=== PATIENT | female | born 1985 | race Caucasian/White ===

== ENCOUNTER 2019-04-18 08:58 | Emergency (ER) | payer SELFPAY ==
[2019-04-18] MEDS ORDERED: KETOROLAC 30 MG/ML INJ ONE (09:26)
--- NOTE | 2019-04-18 10:31 | RAD REPORT ---
EXAM DESCRIPTION: RAD - Shoulder Left 2 View - 04/18/2019 9:33 am CLINICAL HISTORY: Left shoulder pain x6 weeks COMPARISON: None. TECHNIQUE: Internal and external rotation views of the left shoulder were obtained. FINDINGS: There is no fracture or dislocation. AC joint is normal in appearance. No acute or suspici ous findings. IMPRESSION: Negative two-view left shoulder examination.
--- NOTE | 2019-04-18 10:49 | ER ---
Nurse's Notes [facility] Name: Le Bean Age: 33 yrs Sex: Female : 1985 Arrival Date: 04/18/2019 Time: 09:00 Bed 18 Private MD: Diagnosis: Pain in left shoulder Presentation: 04/18 09:05 Presenting complaint: Left shoulder pain and weakness x 6 weeks. Transition of care: hb patient was not received from another setting of care. Onset of symptoms was January 2018. Risk Assessment: Do you want to hurt yourself or someone else? Patient reports no desire to harm self or others. Initial Sepsis Screen: Does the patient meet any 2 criteria? No. Patient's initial sepsis screen is negative. Does the patient have a suspected source of infection? No. Patient's initial sepsis screen is negative. Care prior to arrival: None. 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 - Social history:: Smoking status: Patient uses tobacco products, smokes one-half pack cigarettes per day. - Ebola Screening: : No symptoms or risks identified at this time. Screenin:15 Abuse screen: Denies threats or abuse. Denies injuries from another. Nutritional sg screening: No deficits noted. Tuberculosis screening: No symptoms or risk factors identified. Never had TB. Fall Risk None identified. Assessment: 09:15 General: Appears in no apparent distress. well groomed, well developed, well nourished, sg Behavior is calm, cooperative, appropriate for age. Pain: Pain: Complains of pain in anterior aspect of left shoulder Quality of pain is described as sharp, shooting, stabbing. 10:09 Neuro: Level of Consciousness is awake, alert, obeys commands, Oriented to person, sg place, time, Windmill Mechanic are equal bilaterally Moves all extremities. Gait is steady, Speech is normal, Facial symmetry appears normal, Pupils are PERRLA. Cardiovascular: Capillary refill is brisk in bilateral fingers Patient's skin is warm and dry. Chest pain is denied. Respiratory: Airway is patent Respiratory effort is even, unlabored, Respiratory pattern is regular, symmetrical. GI: Abdomen is round non-distended. : No signs and/or symptoms were reported regarding the genitourinary system. EENT: No signs and/or symptoms were reported regarding the EENT system. Derm: Skin is pink, warm \T\ dry. Musculoskeletal: Circulation, motion, and sensation intact. Range of motion: intact in all extremities. 10:14 Reassessment: Patient appears in no apparent distress at this time. Patient and/or sg family updated on plan of care and expected duration. Pain level reassessed. Patient is alert, oriented x 3, equal unlabored respirations, skin warm/dry/pink. Patient states symptoms have not improved. Vital Signs: 09:07 BP 118 / 74; Pulse 79; Resp 16; Temp 98.2; Pulse Ox 100% on R/A; Weight 81.65 kg; hb Height 5 ft. 6 in. (167.64 cm); Pain 08/25; 09:07 Body Mass Index 29.05 (81.65 kg, 167.64 cm) hb ED Course: 09:00 Patient arrived in ED. as 09:06 Triage completed. hb 09:08 Arm band placed on right wrist. hb 09:09 Prem Davila NP is PHCP. pm1 09:09 Jose Alejandro Bunn MD is Attending Physician. pm1 09:15 No provider procedures requiring assistance completed. sg 09:25 Leopoldo Meeks RN is Primary Nurse. sg 09:35 Shoulder Left (2 View) XRAY In Process Unspecified. EDMS 10:11 Awaiting radiology results. sg Administered Medications: 09:30 Drug: TORadol 60 mg Route: IM; Site: right ventrogluteal; sg Outcome: 10:46 Discharge ordered by . pm1 11:11 Patient left the ED. sg Signatures: Dispatcher [employer] EDMS Leopoldo Meeks, FARRAH RN sg Itzel Colmenares as Prem Davila NP INSTRUMENTATION TECHNOLOGIST pm1 Christie Alfonso RN RN hb Corrections: (The following items were deleted from the chart) 09:09 09:07 LMP 02/28/2019 hb hb 10:10 09:15 Pain: sg sg
--- NOTE | 2019-04-18 10:50 | EDPHYS ---
Physician Documentation [facility] Name: Le Bean Age: 33 yrs Sex: Female : 1985 Arrival Date: 04/18/2019 Time: 09:00 Bed 18 Private MD: MONALISA Physician Jose Alejandro Bunn HPI: 04/18 09:19 This 33 yrs old Female presents to ER via Ambulatory with complaints of Left pm1 shoulder pain. 09:19 The patient or guardian complains of pain. The complaints affect the anterior aspect of pm1 left shoulder. Context: The problem was sustained at home, resulted from unknown cause. Onset: The symptoms/episode began/occurred 2 month(s) ago. 09:19 Modifying factors: The symptoms are alleviated by remaining still, the symptoms are pm1 aggravated by movement, lifting weight. Associated signs and symptoms: Pertinent negatives: deformity, numbness, swelling, tingling. Severity of symptoms: in the emergency department the symptoms are unchanged. The patient has not experienced similar symptoms in the past. The patient has not recently seen a physician. 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 - Social history:: Smoking status: Patient uses tobacco products, smokes one-half pack cigarettes per day. - Ebola Screening: : No symptoms or risks identified at this time. ROS: 09:19 Constitutional: Negative for fever, chills, and weight loss, Eyes: Negative for injury, pm1 pain, redness, and discharge, ENT: Negative for injury, pain, and discharge, Neck: Negative for injury, pain, and swelling, Cardiovascular: Negative for chest pain, palpitations, and edema, Respiratory: Negative for shortness of breath, cough, wheezing, and pleuritic chest pain, Abdomen/GI: Negative for abdominal pain, nausea, vomiting, diarrhea, and constipation, Back: Negative for injury and pain. 09:19 Skin: Negative for injury, rash, and discoloration, Neuro: Negative for headache, weakness, numbness, tingling, and seizure. 09:19 MS/extremity: Positive for pain, of the anterior aspect of left shoulder, Negative for decreased range of motion, deformity, tingling. Exam: 09:19 Constitutional: This is a well developed, well nourished patient who is awake, alert, pm1 and in no acute distress. Head/Face: Normocephalic, atraumatic. Eyes: Pupils equal round and reactive to light, extra-ocular motions intact. Lids and lashes normal. Conjunctiva and sclera are non-icteric and not injected. Cornea within normal limits. Periorbital areas with no swelling, redness, or edema. ENT: Nares patent. No nasal discharge, no septal abnormalities noted. Tympanic membranes are normal and external auditory canals are clear. Oropharynx with no redness, swelling, or masses, exudates, or evidence of obstruction, uvula midline. Mucous membranes moist. Neck: Trachea midline, no thyromegaly or masses palpated, and no cervical lymphadenopathy. Supple, full range of motion without nuchal rigidity, or vertebral point tenderness. No Meningismus. Chest/axilla: Normal chest wall appearance and motion. Nontender with no deformity. No lesions are appreciated. Cardiovascular: Regular rate and rhythm with a normal S1 and S2. No gallops, murmurs, or rubs. Normal PMI, no JVD. No pulse deficits. Respiratory: Lungs have equal breath sounds bilaterally, clear to auscultation and percussion. No rales, rhonchi or wheezes noted. No increased work of breathing, no retractions or nasal flaring. Abdomen/GI: Soft, non-tender, with normal bowel sounds. No distension or tympany. No guarding or rebound. No evidence of tenderness throughout. Back: No spinal tenderness. No costovertebral tenderness. Full range of motion. Skin: Warm, dry with normal turgor. Normal color with no rashes, no lesions, and no evidence of cellulitis. 09:19 Musculoskeletal/extremity: Extremities: grossly normal except: noted in the anterior aspect of left shoulder: tenderness, There is no evidence of decreased ROM, deformity. Vital Signs: 09:07 BP 118 / 74; Pulse 79; Resp 16; Temp 98.2; Pulse Ox 100% on R/A; Weight 81.65 kg; hb Height 5 ft. 6 in. (167.64 cm); Pain 08/25; 09:07 Body Mass Index 29.05 (81.65 kg, 167.64 cm) hb MDM: 09:11 Patient medically screened. pm1 09:18 Data reviewed: vital signs. Data interpreted: Pulse oximetry: on room air is 100 %. pm1 Interpretation: normal. 10:44 Counseling: I had a detailed discussion with the patient and/or guardian regarding: the pm1 historical points, exam findings, and any diagnostic results supporting the discharge/admit diagnosis, radiology results, the need for outpatient follow up, for definitive care, a orthopedic surgeon, to return to the emergency department if symptoms worsen or persist or if there are any questions or concerns that arise at home. 04/18 09:18 Order name: Shoulder Left (2 View) XRAY pm1 04/18 10:52 Order name: Sling; Complete Time: 10:56 pm1 Administered Medications: 09:30 Drug: TORadol 60 mg Route: IM; Site: right ventrogluteal; Disposition: 15:40 Co-signature as Attending Physician, Jose Alejandro Bunn MD I agree with the assessment and [facility] plan of care. Disposition: 04/18/19 10:46 Discharged to Home. Impression: Pain in left shoulder. - Condition is Stable. - Discharge Instructions: Shoulder Pain, How to Use a Sling. - Prescriptions for Tylenol- Codeine #3 300-30 mg Oral Tablet - take 2 tablets by ORAL route every 6 hours As needed; 20 tablet. Cyclobenzaprine 10 mg Oral Tablet - take 1 tablet by ORAL route every 8 hours As needed; 30 tablet. - Work release form, Medication Reconciliation Form, Thank You Letter, Antibiotic Education, Prescription Opioid Use form. - Follow up: Emergency Department; When: As needed; Reason: Worsening of condition. Follow up: Private Physician; When: 2 - 3 days; Reason: Recheck today's complaints, Continuance of care, Re-evaluation by your physician. - Problem is new. - Symptoms have improved. Signatures: Dispatcher [employer] EDLeopoldo Angulo RN RN sg Anderson, Corey, MD MD cha Marinas, Patrick, MANIFOLD BUILDER MANIFOLD BUILDER pm1 Christie Alfonso RN RN Corrections: (The following items were deleted from the chart) 11:11 10:46 04/18/2019 10:46 Discharged to Home. Impression: Pain in left shoulder. Condition sg is Stable. Forms are Medication Reconciliation Form, Thank You Letter, Antibiotic Education, Prescription Opioid Use. Follow up: Emergency Department; When: As needed; Reason: Worsening of condition. Follow up: Private Physician; When: 2 - 3 days; Reason: Recheck today's complaints, Continuance of care, Re-evaluation by your physician. Problem is new. Symptoms have improved. pm1
== END 2019-04-18 11:11 | disposition home or self-care (01) ==
LOC: ER 08:58
DX: M25.512 Pain in left shoulder (principal); Z88.2 Allergy status to sulfonamides; F17.210 Nicotine dependence, cigarettes, uncomplicated
CPT/HCPCS: 96372; 99283

== ENCOUNTER 2019-07-15 10:15 | Emergency (ER) | payer SELFPAY ==
--- NOTE | 2019-07-15 11:01 | ER ---
Nurse's Notes [facility] Name: Le Bean Age: 34 yrs Sex: Female : 1985 Arrival Date: 07/15/2019 Time: 10:17 Bed 12 Private MD: Diagnosis: Contusion of right hand;Abrasion of right hand;Conjunctivitis Presentation: 07/15 10:40 Presenting complaint: Bilateral eye pain, redness, and itching x 1 week. Also c/o right hb hand pain after shutting hand in house door today. Transition of care: patient was not received from another setting of care. Onset of symptoms was July 15, 2019. Risk Assessment: Do you want to hurt yourself or someone else? Patient reports no desire to harm self or others. Care prior to arrival: None. 10:40 Method Of Arrival: Ambulatory hb 10:40 Acuity: ALMAZ 4 hb 11:00 Initial Sepsis Screen: Does the patient meet any 2 criteria? No. Patient's initial ss sepsis screen is negative. Does the patient have a suspected source of infection? Yes: Other: conjunctivitis. 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 - Social history:: Smoking status: Patient uses tobacco products, smokes one-half pack cigarettes per day. - Ebola Screening: : No symptoms or risks identified at this time. Screenin:00 Abuse screen: Denies threats or abuse. Denies injuries from another. Nutritional ss screening: No deficits noted. Tuberculosis screening: Never had TB. Fall Risk None identified. Assessment: 11:00 General: Appears uncomfortable, Behavior is calm, cooperative. Pain: Complains of pain ss in right hand and dorsal aspect of proximal phalanx of right ring finger and dorsal aspect of proximal phalanx of right middle finger and dorsal aspect of proximal phalanx of right index finger Pain currently is 8 out of 10 on a pain scale. Neuro: Level of Consciousness is awake, alert, obeys commands, Oriented to person, place, time, situation. Respiratory: Airway is patent Respiratory effort is even, unlabored, Respiratory pattern is regular, symmetrical. EENT: Sclera/Cornea are reddened in outer aspect of conjuctiva of right eye, inner aspect of conjuctiva of right eye, outer aspect of conjuctiva of left eye and inner aspect of conjunctiva of left eye. Derm: Skin is pink, warm \T\ dry. normal. Musculoskeletal: Circulation, motion, and sensation intact. Range of motion: intact in all extremities, Swelling absent. Vital Signs: 10:41 BP 124 / 75; Pulse 88; Resp 16; Temp 98.3; Pulse Ox 100% on R/A; Weight 83.91 kg; hb Height 5 ft. 5 in. (165.10 cm); Pain 8/10; 10:41 Body Mass Index 30.79 (83.91 kg, 165.10 cm) hb ED Course: 10:17 Patient arrived in ED. as 10:40 Triage completed. hb 10:41 Arm band placed on. hb 10:44 Prem Davila NP is PHCP. pm1 10:44 Bj Todd MD is Attending Physician. pm1 10:55 Hand Right 3 View XRAY In Process Unspecified. EDMS 11:00 Patient has correct armband on for positive identification. Bed in low position. Call ss light in reach. 11:09 Starr Mckeon, FARRAH is Primary Nurse. ss 11:09 No provider procedures requiring assistance completed. Patient did not have IV access ss during this emergency room visit. Administered Medications: No medications were administered Outcome: 10:58 Discharge ordered by MD. pm1 11:09 Discharged to home ambulatory. ss 11:09 Condition: good 11:09 Discharge instructions given to patient, Instructed on discharge instructions, follow up and referral plans. medication usage, Demonstrated understanding of instructions, follow-up care, medications, Prescriptions given X 2. 11:09 Patient left the ED. Signatures: Dispatcher [employer] EDOR Itzel Colmenares as Starr Mckeon, FARRAH RN Prem Davila NP SWEET POTATO DISINTEGRATOR pm1 Christie Alfonso RN RN
--- NOTE | 2019-07-15 11:01 | EDPHYS ---
Physician Documentation [facility] Name: Le Bean Age: 34 yrs Sex: Female : 1985 Arrival Date: 07/15/2019 Time: 10:17 Bed 12 Private MD: ED Physician Bj Todd HPI: 07/15 10:52 This 34 yrs old Female presents to ER via Ambulatory with complaints of Eye pm1 Problem, Finger Injury. 10:52 The patient is experiencing matting or discharge, redness, to both eyes, caused by an pm1 unknown mechanism. Onset: The symptoms/episode began/occurred 1 week(s) ago. Duration: the symptoms are continuous. 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 Associated signs and symptoms: Pertinent negatives: fever, headache, runny nose. Patient does not utilize any form of vision correction does not wear contacts. Severity of symptoms: in the emergency department the symptoms her bilateral eye redness has improved. Right hand injury prior to arrival. Patient accidentally closed her right hand in the door. Pain to 2nd, 3rd, and 4th fingers. The patient has not recently seen a physician. 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 - Social history:: Smoking status: Patient uses tobacco products, smokes one-half pack cigarettes per day. - Ebola Screening: : No symptoms or risks identified at this time. ROS: 10:52 Constitutional: Negative for fever, chills, and weight loss. pm1 10:52 ENT: Negative for injury, pain, and discharge, Neck: Negative for injury, pain, and swelling, Cardiovascular: Negative for chest pain, palpitations, and edema, Respiratory: Negative for shortness of breath, cough, wheezing, and pleuritic chest pain, Abdomen/GI: Negative for abdominal pain, nausea, vomiting, diarrhea, and constipation, Back: Negative for injury and pain. 10:52 Neuro: Negative for headache, weakness, numbness, tingling, and seizure. 10:52 Eyes: Positive for discharge, itching, redness, Negative for foreign body sensation, vision loss, visual disturbance. 10:52 MS/extremity: Positive for pain, of the dorsal aspect of proximal phalanx of right index finger, dorsal aspect of proximal phalanx of right middle finger and dorsal aspect of proximal phalanx of right ring finger, Negative for decreased range of motion, deformity. 10:52 Skin: Positive for abrasion(s), of the dorsal aspect of proximal phalanx of right index finger and dorsal aspect of proximal phalanx of right middle finger. Exam: 10:52 Constitutional: This is a well developed, well nourished patient who is awake, alert, pm1 and in no acute distress. Head/Face: Normocephalic, atraumatic. 10:52 ENT: Nares patent. No nasal discharge, no septal abnormalities noted. Tympanic membranes are normal and external auditory canals are clear. Oropharynx with no redness, swelling, or masses, exudates, or evidence of obstruction, uvula midline. Mucous membranes moist. Neck: Trachea midline, no thyromegaly or masses palpated, and no cervical lymphadenopathy. Supple, full range of motion without nuchal rigidity, or vertebral point tenderness. No Meningismus. Chest/axilla: Normal chest wall appearance and motion. Nontender with no deformity. No lesions are appreciated. Cardiovascular: Regular rate and rhythm with a normal S1 and S2. No gallops, murmurs, or rubs. Normal PMI, no JVD. No pulse deficits. Respiratory: Lungs have equal breath sounds bilaterally, clear to auscultation and percussion. No rales, rhonchi or wheezes noted. No increased work of breathing, no retractions or nasal flaring. 10:52 MS/ Extremity: Pulses equal, no cyanosis. Neurovascular intact. Full, normal range of motion. 10:52 Eyes: Periorbital structures: appear normal, Pupils: equal, round, and reactive to light and accomodation, Extraocular movements: intact throughout, Conjunctiva: injected, bilaterally, Lids and lashes: appear normal. 10:52 Skin: Appearance: normal except for affected area, injury, abrasion(s), very small abrasion noted, of the dorsal aspect of proximal phalanx of right middle finger and dorsal aspect of proximal phalanx of right index finger. 10:52 Neuro: Orientation: is normal, Motor: is normal, moves all fours. Vital Signs: 10:41 BP 124 / 75; Pulse 88; Resp 16; Temp 98.3; Pulse Ox 100% on R/A; Weight 83.91 kg; hb Height 5 ft. 5 in. (165.10 cm); Pain 8/10; 10:41 Body Mass Index 30.79 (83.91 kg, 165.10 cm) hb MDM: 10:52 Patient medically screened. pm1 10:57 Data reviewed: vital signs. Data interpreted: Pulse oximetry: on room air is 100 %. pm1 Interpretation: normal. Counseling: I had a detailed discussion with the patient and/or guardian regarding: the historical points, exam findings, and any diagnostic results supporting the discharge/admit diagnosis, radiology results, to return to the emergency department if symptoms worsen or persist or if there are any questions or concerns that arise at home. 07/15 10:39 Order name: Hand Right 3 View XRAY hb Administered Medications: No medications were administered Disposition: 11:42 Co-signature as Attending Physician, Bj Todd MD. rn Disposition: 07/15/19 10:58 Discharged to Home. Impression: Contusion of right hand, Abrasion of right hand, Conjunctivitis. - Condition is Stable. - Discharge Instructions: Abrasion, Hand Contusion, Bacterial Conjunctivitis. - Prescriptions for tobramycin 0.3 % Ophthalmic drops - instill 1 drop by OPHTHALMIC route every 4 hours for 7 days; 1 vial. Tramadol 50 mg Oral Tablet - take 1 tablet by ORAL route every 8 hours as needed; 12 tablet. - Medication Reconciliation Form, Thank You Letter, Antibiotic Education, Prescription Opioid Use form. - Follow up: Emergency Department; When: As needed; Reason: Worsening of condition. Follow up: Private Physician; When: 2 - 3 days; Reason: Recheck today's complaints, Continuance of care, Re-evaluation by your physician. - Problem is new. - Symptoms have improved. Signatures: Dispatcher [employer] EDMS Bj Todd MD MD rn Smirch, Shelby, RN RN ss Prem Davila, JESSE AIRCRAFT PART ASSEMBLER pm1 Christie Alfonso RN RN Corrections: (The following items were deleted from the chart) 11:09 10:58 07/15/2019 10:58 Discharged to Home. Impression: Contusion of right hand; ss Abrasion of right hand; Conjunctivitis. Condition is Stable. Forms are Medication Reconciliation Form, Thank You Letter, Antibiotic Education, Prescription Opioid Use. Follow up: Emergency Department; When: As needed; Reason: Worsening of condition. Follow up: Private Physician; When: 2 - 3 days; Reason: Recheck today's complaints, Continuance of care, Re-evaluation by your physician. Problem is new. Symptoms have improved. pm1 11: 09:52 This 34 yrs old Female presents to ER via Ambulatory with complaints of pm1 Eye Problem, Finger Injury. 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 Right hand injury prior to arrival. Patient accidentally closed her right hand in the door. Pain to 2nd, 3rd, and 4th fingers, pm1 :52 The patient has not recently seen a physician, pm1 pm1
--- NOTE | 2019-07-15 11:10 | RAD REPORT ---
EXAM DESCRIPTION: RAD - Hand Right 3 View - 07/15/2019 10:54 am CLINICAL HISTORY: Right hand pain status post injury FINDINGS: No fracture or dislocation is seen.
[2019-07-15 14:17] VITALS: BP 124/75; TEMP 98.3; O2SAT 100
== END 2019-07-15 11:09 | disposition home or self-care (01) ==
LOC: ER 10:15
DX: S60.511A Abrasion of right hand, initial encounter (principal); W23.0XXA Caught, crushed, jammed, or pinched between moving objects, initial encounter; Y93.9 Activity, unspecified; Y92.9 Unspecified place or not applicable; F17.210 Nicotine dependence, cigarettes, uncomplicated; Z88.2 Allergy status to sulfonamides
CPT/HCPCS: 99283